=== PATIENT | female | born 1935 | race Caucasian/White ===

== ENCOUNTER 2018-05-19 10:53 | Day surgery (SDC) | payer MEDICARE, OTHER ==
[2018-05-18 11:17] VITALS: BMI 23.1
[2018-05-19] MEDS ORDERED: Fentanyl 250 MCG/5 ML VIAL ONE (11:36)
[2018-05-19 11:41] LABS: #Basophils 0.1 thou/uL (0.0-0.2); #Eosinphils 0.3 thou/uL (0.0-0.7); #Monocytes 1.3 thou/uL (0.11-0.59); #Neutrophils 5.6 thou/uL (1.40-6.50); %Basophils 0.6 % (0.0-1.0); %Lymphocytes 29.4 % (21.0-51.0); %Monocytes 12.6 % (0.0-10.0); %Neutrophils 54.5 % (42.0-75.0); Hemoglobin 13.4 g/dL (12.0-16.0); Mean Corpuscular HGB CONC 32.5 g/dL (32.0-36.0); Mean Corpuscular Hemoglobin 30.6 pg (27.0-31.0); Mean Corpuscular Volume 94.2 fL (78.0-98.0); Mean Platelet Volume 8.7 fL (7.4-10.4); Platelet Count 214 thou/uL (130-400); RBC Distribution Width 12.6 % (11.5-14.5); Red Blood Cell (RBC) Count 4.36 mill/uL (4.20-5.40); White Blood Cell (WBC) Count 10.3 thou/uL (4.8-10.8)
[2018-05-19] MEDS ORDERED: Lidocaine 1% w/Epinephrine 1:100K 30 ML VIAL ONE (11:57)
[2018-05-19 12:08] LABS: Anion Gap 10 mmol/L (10-20); BUN (Urea Nitrogen) 29 mg/dL (9.8-20.1); Calc. Creatinine Clearance 44 mL/min (70-130); Calcium 11.1 mg/dL (7.8-10.44); Carbon Dioxide 28 mmol/L (23-31); Chloride 106 mmol/L (98-107); Estimated GFR-MDRD 57; Glucose 96 mg/dL (83-110); Potassium 3.7 mmol/L (3.5-5.1); Sodium 140 mmol/L (136-145)
[2018-05-19] MEDS ORDERED: Labetalol HCl 100 MG/20 ML VIAL ONE (12:47)
[2018-05-19] MEDS ORDERED: Succinylcholine Chloride 20 MG/ML 10 ml SYRINGE FS ONE (13:03)
[2018-05-19] MEDS ORDERED: PROPOFOL 200 MG/20 ML VIAL ONE (13:03)
[2018-05-19] MEDS ORDERED: Dexamethasone 20 MG/5 ML VIAL ONE (13:03)
[2018-05-19] MEDS ORDERED: Lidocaine 1% PF 5 ML VIAL ONE (13:03)
[2018-05-19] MEDS ORDERED: ePHEDrine/0.9% NaCl/PF SYRINGE 50 mg/10 ml ONE (13:03)
[2018-05-19] MEDS ORDERED: Ondansetron HCl/PF 4 MG/2 ML Vial ONE (13:03)
--- NOTE | 2018-05-19 13:37 | OP ---
DATE OF PROCEDURE: 05/19/2018 PREOPERATIVE DIAGNOSIS: Right parathyroid adenoma. POSTOPERATIVE DIAGNOSIS: Right parathyroid adenoma. PROCEDURE PERFORMED: Right neck exploration with excision of right parathyroid using laryngeal nerve monitoring. PROCEDURE IN DETAIL: After consent was obtained, the patient was identified, brought to the operatin g room and placed on the table in supine position. General endotracheal anesthesia was obtained. Th e patient was positioned for surgery and the CT scans were reviewed and the parathyroid that was prev iously identified was revisited. We then prepped and draped and positioned the patient and we docume nted that the laryngeal nerve monitor was functioning well. We then proceeded with positioning the p atient, prepping and draping. The neck was extended. A skin incision was made in the natural skin c rease after 1% lidocaine was infiltrated in the subcutaneous tissues. The incision was carried down through the skin, subcutaneous tissues and platysma and subplatysmal flaps were elevated inferiorly a nd superiorly. Strap muscles were divided and the capsule of the thyroid was identified. We then re tracted the strap muscles laterally as we medially grasped the right thyroid lobe and retracted that medially and dissected in the tracheoesophageal groove. A 1.5 cm lesion was identified. Posterior r ight lobe was removed and sent for histologic evaluation and it was consistent with parathyroid adeno ma. We then proceeded with obtaining hemostasis, placing Fibrillar Surgicel in the deep aspect of th e wound and closing the wound in layers. A sterile dressing was applied. The patient was awakened, extubated and taken to recovery room where she remained in stable condition prior to discharge home.
--- NOTE | 2018-05-19 15:26 | EKG ---
Test Reason : PREOP Blood Pressure : / mmHG Vent. Rate : 051 BPM Atrial Rate : 051 BPM P-R Int : 188 ms QRS Dur : 092 ms QT Int : 460 ms P-R-T Axes : 092 -17 068 degrees QTc Int : 423 ms Sinus bradycardia with Premature supraventricular complexes Nonspecific ST and T wave abnormality Abnormal ECG No previous ECGs available Confirmed by LILY CLARKE, DR. Iniguez ([id number]) on 05/19/2018 3:25:50 PM Referred By: VIVIAN Confirmed By:DR. Geetha BAUTISTA MD
== END 2018-05-19 14:25 | disposition home or self-care (01) ==
LOC: SDC 10:53
PROVIDERS: ATTEND Specialist
PROC: 0GBR0ZZ Excision of Parathyroid Gland, Open Approach (ICD-10-PCS; principal; 2018-05-19)
DX: D35.1 Benign neoplasm of parathyroid gland (principal); E21.3 Hyperparathyroidism, unspecified; K50.90 Crohn's disease, unspecified, without complications; Z79.82 Long term (current) use of aspirin; Z79.899 Other long term (current) drug therapy
CPT/HCPCS: 80048; 85025; 88305; 88331; 88334; 93005; 93010; 96374; J2001; J3010